=== PATIENT | male | born 1960 | race Two or more races ===

== ENCOUNTER 2024-09-02 11:25 | Emergency (ER) | payer OTHER ==
[~2024-09-02] VITALS: Ht 172.7 cm; Wt 90.7 kg
[2024-09-02 13:14] LABS: VBG BASE EXCESS -1.3 mmol/L (-2.0-3.0); VBG COHb 0.5 % (0.5-1.5); VBG HCO3 19.8 mmol/L (22.0-29.0); VBG MetHb 0.3 % (0.5-1.5); VBG O2Hb 90.4 % (0-79); VBG OXYGEN SATURATION 91.1 % (60.0-85.0); VBG PCO2 25.9 mmHg (38.0-54.0); VBG PH 7.501 (7.320-7.430); VBG PO2 54.5 mmHg (23.0-48.0); VBG TOTAL HEMOGLOBIN 17.4 G/dL (13.5-17.5)
[2024-09-02 13:18] LABS: BASOPHILS # (AUTO) 0.1 K/uL (0.0-0.2); BASOPHILS % (AUTO) 0.6 % (0.0-2.0); EOSINOPHILS % (AUTO) 0.2 % (0.0-6.0); HEMATOCRIT 50 % (39-51); HEMOGLOBIN 17.1 g/dL (13.5-17.5); LYMPHOCYTES # (AUTO) 1.5 K/uL (0.8-4.8); MEAN CORPUSCULAR HEMOGLOBIN 29 PG (26.0-33.0); MEAN CORPUSCULAR HGB CONC 34 g/dl (31.0-36.0); MEAN CORPUSCULAR VOLUME 86 fL (80-96); MONOCYTES # (AUTO) 0.7 K/uL (0.1-1.30); MONOCYTES % (AUTO) 7.2 % (2.0-12.0); NEUTROPHILS # (AUTO) 8.1 K/uL (1.8-8.9); PLATELET COUNT (AUTO) 214 K/uL (150-450); RED BLOOD CELL COUNT(AUTO) 5.86 MIL/uL (4.5-6.0); WHITE BLOOD COUNT (AUTO) 10.4 K/uL (4.3-11.0)
[2024-09-02] MEDS: IV NS 0.9% 1,000 ML BAG IV ONE (13:29)
[2024-09-02 13:33] LABS: CALCIUM, SERUM 9.4 mg/dL (8.5-10.1); CREATININE 0.8 mg/dL (0.6-1.3); POTASSIUM 3.8 mmol/L (3.5-5.1)
[2024-09-02] MEDS: KETOROLAC TROMETHAMINE INJ 30 MG/ML VIAL IV ONE (14:28)
[2024-09-02] MEDS: METFORMIN XR 500 MG TAB.SR.24H PO STA (14:29)
[2024-09-02 14:30] VITALS: BP 129/92; TEMP 97.9; O2SAT 97
== END 2024-09-02 14:31 ==
LOC: ER 11:32
DX: E11.65 Type 2 diabetes mellitus with hyperglycemia (principal); M25.569 Pain in unspecified knee; R53.1 Weakness; I10 Essential (primary) hypertension; Z86.79 Personal history of other diseases of the circulatory system
CPT/HCPCS: 99285; 96360; 85025; 80048; 82010; 36415; 82962; J7030